=== PATIENT | female | born 1995 | race Caucasian/White ===

== ENCOUNTER → 2022-03-14 13:16 | Outpatient (CLI) | payer BC, SELFPAY ==
--- NOTE | ~2022-03-14 | US_ITS ---
EXAMINATION: US OB /maternal detail DATE: 03/14/2022 13:49 INDICATION: Encounter for screening, unspecified. TECHNIQUE: Real-time ultrasound of the pelvis was performed. COMPARISON: None. FINDINGS: There is a single living fetus in vertex presentation. The placenta is anterior, 1.6 cm from the cer vix. The cervical length is 3.0 cm on transabdominal images, which is normal. heart rate is 122 beats per minute (bpm). The amniotic fluid volume is subjectively normal. The following biometric data were obtained: Biparietal diameter (BPD): 5.4 cm; head circumference (HC): 20.5 cm; abdominal circumference (AC): 17 .4 cm; femur length (FL): 3.9 cm. These measurements are concordant. Estimated weight is 502 g +/- 75 g, which correlates with the 14th percentile when 07/10/22 is u sed as estimated date of delivery. As single measurements, these parameters are each equal to the following estimated gestational ages: BPD: 22 weeks 4 days. HC: 22 weeks 4 days. AC: 22 weeks 2 days. FL: 22 weeks 3 days. estimated gestational age based solely on measurements from this exam is 22 weeks 3 days +/- 1 weeks 4 days. The cerebral ventricles, cerebellum, cisterna magna, lip, and visualized portions of the spine are no rmal. The heart is normal. The diaphragm, stomach, kidneys, and bladder are normal. There are two umb ilical arteries to yield a 3-vessel cord. The cord insertion is normal. IMPRESSION: 1. Single living fetus in vertex presentation. 2. Estimated weight is 502 g +/- 75 g, which correlates with the 14th percentile when 07/10/22 is used as estimated date of delivery. 3. Low-lying placenta. 4. Normal anatomic survey. Reviewed, dictated and finalized at location A. TENANCE [employer]TER IMPRESSION: 1. Single living fetus in vertex presentation. 2. Estimated weight is 502 g +/- 75 g, which correlates with the 14th pe rcentile when 07/10/22 is used as estimated date of delivery. 3. Low-lying placenta. 4. Normal anatomic survey.
== END ==
PROVIDERS: PCP Advanced Practice Midwife; Visit Provider Advanced Practice Midwife
DX: Z36.9 Encounter for antenatal screening, unspecified (principal); Z3A.22 22 weeks gestation of pregnancy
CPT/HCPCS: 76805

== ENCOUNTER 2022-05-02 07:41 | Outpatient (RCR) | payer BC, SELFPAY ==
[2022-05-02] MEDS: RHO(D) IMMUNE GLOBULIN 300 MCG/2 ML SYRINGE IM (12:03)
== END 2022-05-02 08:00 | disposition home or self-care (01) ==
LOC: ANHLAB 07:41
PROVIDERS: Visit Provider Obstetrics & Gynecology Gynecology
DX: Z29.13 Encounter for prophylactic Rho(D) immune globulin (principal); O36.0190 Maternal care for anti-D [Rh] antibodies, unspecified trimester, not applicable or unspecified; Z3A.00 Weeks of gestation of pregnancy not specified
CPT/HCPCS: 36415; 85461; 86850; 86900; 86901; 90384; 96372; J2790

== ENCOUNTER 2022-05-02 09:36 | Outpatient (CLI) | payer BC, SELFPAY ==
[2022-05-02 11:17] LABS: Hematocrit 34.8 % (37.0-47.0)
[2022-05-02 11:27] LABS: Glucose 1 Hour PP 50gm Dose 138 mg/dL
[2022-05-02 11:59] LABS: Vitamin D 25 Hydroxy 45.9 ng/mL
[2022-05-02 12:08] LABS: HIV 1/2 Ab P24 Ag Result Negative (Negative)
== END 2022-05-02 09:37 | disposition home or self-care (01) ==
LOC: ANHLAB 09:40
PROVIDERS: Visit Provider Obstetrics & Gynecology Gynecology
DX: Z36.9 Encounter for antenatal screening, unspecified (principal)
CPT/HCPCS: 36415; 82306; 82947; 85014; 85018; 86703; G0432

== ENCOUNTER → 2022-05-02 11:16 | Outpatient (CLI) | payer BC, SELFPAY ==
--- NOTE | ~2022-05-02 | US_ITS ---
EXAMINATION: US OB follow up DATE: 05/02/2022 11:42 INDICATION: Low-lying placenta during second trimester TECHNIQUE: Real-time ultrasound of the pelvis was performed. The interpreting radiologist was not pre sent for the study. COMPARISON: None. FINDINGS: There is a single living fetus in transverse lie. The placenta is anterior. heart rate is 135 beats per minute (bpm). The amniotic fluid index is 8.2 cm, which is greater than 2 standard deviati ons below the mean (5th%-95%: 9.2-23.1 cm at 29 weeks estimated gestational age). The following biometric data were obtained: BPD: 7.9 cm -> 31 weeks 4 days Head circumference: 28.1 cm -> 30 weeks 6 days Abdominal circumference: 26.9 cm -> 31 weeks 0 days Femur length: 3.2 cm -> 29 weeks 3 days Femur length to biparietal diameter ratio of 70.9 is slightly below the normal range of 71.0-87.0 gre ater. These measurements are otherwise concordant. Head circumference to abdominal circumference ratio: 1.05 (normal range 0.96-1.18). Estimated weight: 1589 g (+/-) 238 g or 3 lbs. 8 oz. (+/-) 8 oz. IMPRESSION: 1. Single living fetus in transverse lie with heart rate of 135 bpm. 2. Oligohydramnios with amniotic fluid index of 8.2 cm. 3. Estimated weight is 77th percentile by Hadlock criteria when 07/15/2022 is used as the estima lissette date of delivery (KAREN). Please correlate with clinical information or earlier ultrasounds for mos t accurate KAREN. 4. Femur length to biparietal diameter ratio minimally beyond the lower limits of normal. Reviewed, dictated and finalized at location L. IMPRESSION: 1. Single living fetus in transverse lie with heart rate of 135 bpm. 2. Oligohydramnios with amniotic fluid index of 8.2 cm. 3. Estimated weight is 77th percentile by Hadlock criteria when 07/15/2022 is used as the estimated date of delivery (KAREN). Please correlate with clinica l information or earlier ultrasounds for most accurate KAREN. 4. Femur length to biparietal diameter ratio minimally beyond the lower limits of normal.
== END ==
PROVIDERS: PCP Physician Assistant; Visit Provider Advanced Practice Midwife
DX: O44.42 Low lying placenta NOS or without hemorrhage, second trimester (principal); O41.02X0 Oligohydramnios, second trimester, not applicable or unspecified
CPT/HCPCS: 76816

== ENCOUNTER 2022-05-11 07:40 | Outpatient (CLI) | payer BC, SELFPAY ==
[2022-05-11 08:14] LABS: Glucose Fasting Gestational 84 mg/dL (>/=95)
[2022-05-11 10:01] LABS: Glucose 1 Hour Gest 167 mg/dL (>/=180)
[2022-05-11 10:38] LABS: Glucose 2 Hour Gest 135 mg/dL (>/= 155)
[2022-05-11 11:57] LABS: Glucose 3 Hour Gest 42 mg/dL (>/=140)
== END 2022-05-11 07:41 | disposition home or self-care (01) ==
PROVIDERS: PCP Physician Assistant; Visit Provider Obstetrics & Gynecology Gynecology
DX: O99.810 Abnormal glucose complicating pregnancy (principal); Z3A.00 Weeks of gestation of pregnancy not specified
CPT/HCPCS: 36415; 82951; 82952

== ENCOUNTER 2022-06-26 16:44 | Outpatient (CLI) | payer BC, SELFPAY ==
[2022-06-26] VITALS (11 sets, daily range): BP systolic 119–136; BP diastolic 70–81; PULSE 75–82
[2022-06-26 17:43] LABS: Appearance Urine Clear (Clear); Basophils Absolute Auto 0.1 K/mm3 (0.0-0.1); Basophils Percent Auto 0.4 % (0.2-1.2); Bilirubin Urine Negative (Negative); Blood Urine Negative (Negative); Color Urine Yellow (Yellow); Eosinophils Absolute Auto 0.1 K/mm3 (0-0.3); Eosinophils Percent Auto 0.4 % (0-4.4); Glucose Urine UA Negative (Negative); Hematocrit 36.5 % (37.0-47.0); Hemoglobin 12.7 g/dL (12.0-15.0); Immature Granulocyte Absolute 0.07 K/mm3 (0.00-0.031); Immature Granulocyte Percent A 0.6 % (0-0.5); Ketones Urine Negative (Negative); Leukocyte Esterase Ur Negative LEU/UL (NEGATIVE); Lymphocytes Percent Auto 19.9 % (18.3-44.2); Mean Corpuscular HGB Conc 34.8 g/dl (32-36); Mean Corpuscular Hemoglobin 34.5 pg (26-34); Mean Corpuscular Volume 99.2 fl (80-100); Mean Platelet Volume 10.2 fl (7.4-10.4); Monocytes Absolute Auto 0.7 K/mm3 (0.1-0.6); Monocytes Percent Auto 5.7 % (2.6-8.5); Neutrophils Absolute Auto 8.8 K/mm3 (1.3-6.7); Nitrate Urine Negative (Negative); Platelet Count Result 203 k/mm3 (150-375); Protein Urine Negative (Negative); Red Blood Count 3.68 M/mm3 (4.2-5.4); Red Cell Distribution Width 13.5 % (11.5-14.5); Specific Grav Ur 1.009 (1.001-1.035); Urobilinogen Urine 0.2 mg/dL (<2.0); White Blood Count 12.1 K/mm3 (4.5-10.0)
[2022-06-26 17:51] LABS: Add Urine Microscopic? NO
[2022-06-26 17:56] LABS: Alanine Aminotransferase 27 U/L (6-35); Albumin Level 3.8 g/dL (3.5-5.1); Alkaline Phosphatase 191 U/L (38-126); Anion Gap 10 mmol/L (8-16); Aspartate Amino Transferase 35 U/L (14-36); Bilirubin,Total 0.4 mg/dL (0.2-1.3); Blood Urea Nitrogen 11 mg/dL (7-17); Calcium 8.8 mg/dL (8.4-10.2); Carbon Dioxide 20 mmol/L (22-30); Chloride 105 mmol/L (98-107); Estimated Glomerular Filt Rate > 60; Glucose 86 mg/dL (65-110); Potassium 4.1 mmol/L (3.4-5.0); Sodium 135 mmol/L (137-145); Uric Acid 5.4 mg/dL (2.5-7.5)
[2022-06-26 17:57] LABS: Creatinine Urine 24.7 mg/dL; Total Protein Urine Random 9 mg/dL; Ur Ttl Prot Creatinine Ratio 0.36 mg/mg (0-0.20)
--- NOTE | 2022-06-26 19:10 | PC.NURSE ---
Severiano Sandoval CNM called unit for update. CNM notified of lab results, Vital signs, and tracing. CNM notified that patient has no signs of Pre-E. Orders received to return home with 24 hour urine to start whenever is convenient for patient and to have CMP at time of returning urine.
--- NOTE | 2022-06-26 19:20 | PC.NURSE ---
Discharge instructions given to patient. Educated on 24 hour urine process with instruction hand out given to patient. Patient given signs and symptoms of Pre - E. Informed of repeat lab draws upon urine return. Patient verbalizes understanding and is discharged home with paper instructions without complications.
== END 2022-06-26 19:20 ==
LOC: ANHOBOP 16:47 → ANHOBPP 16:48
PROVIDERS: Advanced Practice Midwife; PCP Physician Assistant; Visit Provider Obstetrics & Gynecology Gynecology
DX: O13.9 Gestational [pregnancy-induced] hypertension without significant proteinuria, unspecified trimester (principal); Z3A.00 Weeks of gestation of pregnancy not specified
CPT/HCPCS: 36415; 59025; 80053; 81003; 82570; 84156; 84550; 85025; 87086; 87088; 99199

== ENCOUNTER 2022-06-27 20:50 | Outpatient (CLI) | payer BC, SELFPAY ==
[2022-06-27 21:30] VITALS: BP 128/88
[2022-06-27 21:41] VITALS: BMI 26.8
[2022-06-27 22:00] LABS: Alanine Aminotransferase 25 U/L (6-35); Albumin Level 3.6 g/dL (3.5-5.1); Alkaline Phosphatase 172 U/L (38-126); Anion Gap 7 mmol/L (8-16); Aspartate Amino Transferase 31 U/L (14-36); Bilirubin,Total 0.3 mg/dL (0.2-1.3); Blood Urea Nitrogen 17 mg/dL (7-17); Calcium 8.4 mg/dL (8.4-10.2); Carbon Dioxide 21 mmol/L (22-30); Chloride 106 mmol/L (98-107); Estimated CRCL calculation 80 ml/min; Estimated Glomerular Filt Rate > 60; Glucose 87 mg/dL (65-110); Potassium 3.6 mmol/L (3.4-5.0); Sodium 134 mmol/L (137-145)
[2022-06-28 03:06] LABS: Collection Time Urine 24 HOURS
[2022-06-28 03:14] LABS: Creatinine Urine 71.9 mg/dL; Patient Weight 156 Lbs
[2022-06-28 03:16] LABS: Total Protein Urine Random < 5 mg/dL
[2022-06-28 03:17] LABS: Creatinine Clearance Urine 123.1 ml/min (75-125); Total Protein Urine 24 Hr < 100 mg/24hr (28-141); Total Volume 24 Hour Urine 2000 ml
== END 2022-06-27 21:40 | disposition home or self-care (01) ==
LOC: ANHOBOP 20:57 → ANHLDR 21:10
PROVIDERS: Advanced Practice Midwife; PCP Physician Assistant; Visit Provider Obstetrics & Gynecology Gynecology
DX: O13.9 Gestational [pregnancy-induced] hypertension without significant proteinuria, unspecified trimester (principal); Z3A.00 Weeks of gestation of pregnancy not specified
CPT/HCPCS: 36415; 80053; 81050; 82575; 84156; 99199

== ENCOUNTER 2022-07-02 19:11 | Inpatient (IN) | payer BC, SELFPAY ==
[2022-07-02] VITALS (11 sets, daily range): BP systolic 119–139; BP diastolic 73–90; PULSE 73–86; TEMP 36.5; BMI 32.9
--- NOTE | 2022-07-02 19:37 | P.PNAN_ITS ---
Anes - Eval Pre Procedure Procedure: labor epidural Date/Time: 07/02/22 19:37 Surgeon: jared Preop Diagnosis: pain during labor Pre Op Diagnosis: Induction of Labor Patient Data Age: 26 Gender: F Height: Weight: Allergies Allergy/AdvReac Type Severity Reaction Status Date / Time latex Allergy Rash Verified 07/01/22 12:48 Home Medications Medication Instructions Recorded Confirmed Type diphenhydramine HCl 50 mg capsule 50 mg PO HS 07/01/22 07/01/22 History (Sleep Aid (diphenhydramine)) sertraline 25 mg tablet (Zoloft) 25 mg PO DAILY 07/01/22 07/01/22 History Patient hx anesthesia problems: none Family hx anesthesia problems: none Results Review: All pre-operative results and documents have been reviewed as part of the pre- operative evaluation. PMFSH Past Medical History Medical History (Updated 07/02/22 @ 19:38 by Eri Mukherjee CRNA) IUP (intrauterine ), incidental Family History Family History (Updated 07/01/22 @ 12:42 by Chrissy Oliver RN) Grandparent Diabetes mellitus Social History Social History Spiritual care concerns: No Exam Day of Procedure 07/02/22 19:37
--- NOTE | 2022-07-02 19:42 | LDADM ---
This patient, Allyssa Isbell, was admitted to Labor/Delivery/Recovery 109 on 07/02/22 at 19:11. Plans for labor, pain management and were discussed with patient. Patient/family oriented to hospital policies and general routines including ID bracelet, bed and alarms, visiting hours, pain management, procedures, bathroom and other care routines, personal items, smoking policy, room service/diet and guest tray routines, security routines, and visiting hours. Patient/Family are encouraged to report perceived risks to care and to ask questions if they do not understand what they are told or what they should do. See OBIX for further documentation.
[2022-07-02] MEDS: miSOPROStol 25 MCG TABLET BY MOUTH (20:00)
[2022-07-02 20:09] LABS: Basophils Percent Auto 0.4 % (0.2-1.2); Eosinophils Absolute Auto 0.1 K/mm3 (0-0.3); Eosinophils Percent Auto 0.6 % (0-4.4); Hematocrit 37.3 % (37.0-47.0); Hemoglobin 13.1 g/dL (12.0-15.0); Immature Granulocyte Absolute 0.05 K/mm3 (0.00-0.031); Immature Granulocyte Percent A 0.5 % (0-0.5); Lymphocytes Absolute Auto 2.04 K/mm3 (0.9-3.2); Lymphocytes Percent Auto 19.2 % (18.3-44.2); Mean Corpuscular HGB Conc 35.1 g/dl (32-36); Mean Corpuscular Hemoglobin 33.9 pg (26-34); Mean Corpuscular Volume 96.4 fl (80-100); Mean Platelet Volume 10.9 fl (7.4-10.4); Monocytes Absolute Auto 0.7 K/mm3 (0.1-0.6); Monocytes Percent Auto 6.6 % (2.6-8.5); Neutrophils Absolute Auto 7.7 K/mm3 (1.3-6.7); Neutrophils Percent Auto 72.7 % (45.5-73.1); Platelet Count Result 201 k/mm3 (150-375); Red Blood Count 3.87 M/mm3 (4.2-5.4); Red Cell Distribution Width 13.3 % (11.5-14.5); White Blood Count 10.6 K/mm3 (4.5-10.0)
[2022-07-02 20:25] LABS: Alanine Aminotransferase 28 U/L (6-35); Albumin Level 3.7 g/dL (3.5-5.1); Alkaline Phosphatase 228 U/L (38-126); Anion Gap 8 mmol/L (8-16); Aspartate Amino Transferase 46 U/L (14-36); Bilirubin,Total 0.3 mg/dL (0.2-1.3); Blood Urea Nitrogen 16 mg/dL (7-17); Calcium 8.5 mg/dL (8.4-10.2); Carbon Dioxide 19 mmol/L (22-30); Chloride 108 mmol/L (98-107); Estimated CRCL calculation 112 ml/min; Estimated Glomerular Filt Rate > 60; Glucose 77 mg/dL (65-110); Potassium 4.1 mmol/L (3.4-5.0); Sodium 135 mmol/L (137-145)
[2022-07-02] MEDS: AMPICILLIN 2 GM/NS 100 ML 2 GM/100 ML BAG IVPB (21:35)
[2022-07-02] MEDS: LACTATED RINGERS 1,000 ML 125 ML IV CONT (21:35)
[2022-07-03] VITALS (274 sets, daily range): BP systolic 97–167; BP diastolic 54–124; PULSE 59–178; RESP 16; TEMP 36.5–37.6; O2SAT 85–100
[2022-07-03] MEDS: fentaNYL CITRATE INJ (*CRX) 100 MCG/2 ML VIAL 50 MCG IV PUSH (00:06)
[2022-07-03] MEDS: LACTATED RINGERS 1,000 ML 125 ML IV CONT ×3 (01:02→10:42)
[2022-07-03] MEDS: AMPICILLIN 1 GM/NS 50 ML 1 GM/50 ML BAG IVPB ×3 (01:45→10:42)
--- NOTE | 2022-07-03 07:22 | WPDOBADMIT ---
Obstetrics - Admit Note Admission Note: record reviewed. No pertinent additions to the history and/or any subsequent changes in the physical findings that are not consistent with the expected course of the were found. Additions to the history and/or subsequent changes in the physical findings follow. gHTN.
--- NOTE | 2022-07-03 07:22 | PM.OBPNLAB ---
Pain Control Date/time seen: 07/03/22 0500 (late entry) CNM called at 0505 for update. SROM 07/02/22 after one cytotec. Pt last 6cm by RN exam. Making change with no pitocin. FHT tracing reassuring. pt comfortable with epidural. Discussed that CNM will see pt this am. Anticipate vaginal .
--- NOTE | 2022-07-03 08:11 | PM.OBPNLAB ---
Pain Control Date/time seen: 07/03/22 08:08 Pain control: tolerating well and epidural Comments: Denies pain. Feeling some occasional abdominal tightening/pressure. Spouse present and supportive Pelvic Exam Dilation (cm): 5 Effacement (%): 80 station: -1 Amniotic membrane status: Ruptured Contractions Monitor mode: External Contraction pattern: Irregular Contraction intensity: Moderate Status status: Category ll Comments: Reassured by moderate variability and accelerations. Assessment and Plan Plan: begin patient augmentation Comments: Discussed plan of care and recommend IUPC placement. Pt agreeable. If MVUs inadequate, plan to begin pitocin augmentation. Anticipate vaginal . Dr. Hawkins updated. BPs WNL. Recieving Ampicillin d/t GBS+ status.
[2022-07-03] MEDS: OXYTOCIN 30 UNITS/NS 500 ML 30 UNITS/500 ML BAG IV CONT (09:30)
[2022-07-03 10:56] LABS: Rapid Plasma Reagin Non-Reactive (NonReactive)
--- NOTE | 2022-07-03 16:05 | P.PCNOB_ITS ---
OB - Delivery Note Procedure Delivery date: 07/03/22 Procedure: Events: Gestational Hypertension and Positive Group B Strep (GBS) Induction method: AROM, Per Misoprostol Protocol and Per Pitocin Protocol Route of delivery: Episiotomy description: None Laceration Description: Periurethral, Perineal - 1st Degree and Vaginal Delivery repair: vicryl Specimen: Yes Quantitative Blood Loss (ml): 150 Anesthesia type: Epidural Disposition: Floor Narrative: Patient arrived for induction of labor secondary to gestational hypertension. She was given 1 Cytotec and spontaneously ruptured and began having more regular uterine contractions. She progressed to 5 cm and then was augmented with Pitocin. She made progress to complete dilation and pushed with contractions. There was easy delivery of the head followed by fair restitution and delivery of the anterior followed by posterior shoulder. The remainder of the infant was quickly delivered and baby was placed on maternal abdomen and dried and stimulated by the nursing staff. After 1 minute of life the cord was doubly clamped and cut. Cord blood, cord gases, cord segment were obtained. The placenta delivered spontaneously in the [place] presentation. The lacerations repaired in the usual fashion and there was excellent hemostasis. All delivery counts correct. Mother and baby skin to skin in the delivery room. [place] Baby Date of : 07/03/22 Time of : 15:36 Weeks of gestation at delivery: 38 gender: Male Weight (pounds): 6 Weight (ounces): 13 presentation: vertex position: Right Occiput Anterior (compound presentation with right hand) Placenta delivery description: Spontaneous Cord Vessel Description: 3 Vessels, True Knot, Clamped/Cut and Delayed Cord Clamping score one minute: 9 score five minutes: 9
--- NOTE | 2022-07-03 16:09 | PM.DS ---
DS: Admitting Diagnosis Discharge Date 07/05/22 Admitting Diagnosis 26 y.o. at 38 weeks gHTN Anxiety Rh negative status Rubella Non immune DS: Discharge Diagnosis Discharge Diagnosis (1) (normal spontaneous vaginal delivery): Code(s): O80 - Encounter for full-term uncomplicated delivery Status: Acute (2) Anxiety: Code(s): F41.9 - Anxiety disorder, unspecified Status: Acute (3) Rh negative status during : Code(s): O26.899 - Other specified related conditions, unspecified trimester; Z67.91 - Unspecified blood type, Rh negative Status: Acute Assessment and Plan: s/p Rhogam (4) Gestational hypertension: Code(s): O13.9 - Gestational [-induced] hypertension without significant proteinuria, unspecified trimester Status: Acute DS: Summary Hospital Course Reason for hospitalization: childbirth Hospital Course: Uncomplicated Status at Discharge Functional status at discharge: independent ambulation Overall status at discharge: patient is progressing back to baseline Time Spent with Patient Time attestation: Total time spent providing and/or coordinating discharge services: Exam Narrative: Alert and oriented. Mood is pleasant and cooperative. Urinating without difficulty. Denies passing any large clots. Perineum with minimal edema. Fundus firm and below umbilicus. Const: General: cooperative, healthy appearing, no acute distress and alert Orientation/consciousness: patient oriented x3 Limitations: no limitations Resp: Effort & Inspection: normal respiratory effort Auscultation: clear to auscultation bilaterally Cardio: Rate: regular rate GI: Inspection: normal to inspection Neuro: General: patient oriented x3 Extrem: General: normal to inspection Psych: Appearance: grossly normal Mental Status: mental status grossly normal Affect: normal affect Thought process: Normal thought process present DS: Data Data Completed and Pending Labs on day of discharge: Labs from last 24 hours 07/02/22 19:55 WBC 10.6 H RBC 3.87 L Hgb 13.1 Hct 37.3 MCV 96.4 MCH 33.9 MCHC 35.1 RDW 13.3 Plt Count 201 MPV 10.9 H Immature Gran % (Auto) 0.5 Neut % (Auto) 72.7 Lymph % (Auto) 19.2 [place] % (Auto) 6.6 Eos % (Auto) 0.6 Baso % (Auto) 0.4 Lymph # (Auto) 2.04 [place] # (Auto) 0.7 H Eos # (Auto) 0.1 Baso # (Auto) 0.0 Abs Immat Gran (auto) 0.05 H Absolute Neuts (auto) 7.7 H Absolute Nucleated RBC 0.0 Nucleated RBC % 0.0 Sodium 135 L Potassium 4.1 Chloride 108 H Carbon Dioxide 19 L Anion Gap 8 BUN 16 Creatinine 0.70 Estim Creat Clear Calc 112 Estimated GFR > 60 Glucose 77 Calcium 8.5 Total Bilirubin 0.3 AST 46 H ALT 28 Alkaline Phosphatase 228 H Total Protein 7.0 Albumin 3.7 RPR Non-reactive Blood Type O Negative Antibody Screen Positive Antibody Identification Passive Due to RH Imm Glob Antigen Identification Cancelled NIKHIL, IgG Interpret Not Performed NIKHIL, Poly Interpret Negative NIKHIL, Complement Interp Not Performed Discharge Plan Discharge Attending physician on discharge: Yareli Hawkins Discharging Clinician: Melva Sandoval Patient Disposition: Home, Self-Care Activity: may shower Diet: as tolerated Discharge Instructions: Continue taking your vitamin and any other supplements as previously directed (Examples: Iron, Vitamin D). You may take Tylenol 1000mg over the counter every 6 hours as needed for pain. Do not exceed 4000mg of Tylenol daily. You may continue using tucks pads and dermoplast spray if needed for a few more days. Patient Instructions: Antibiotic Form Stand Alone Forms: General Discharge Information Follow-up/Referrals: Melva Sandoval, CNM [Certified Nurse Interactive Designer] - (6 weeks ) Discharge Medications: New norethindrone (contraceptive) [Ortho Micronor] 0.35 mg tablet 0.35 mg PO D
[2022-07-03] MEDS: OXYTOCIN 30 UNITS/NS 500 ML 30 UNITS/500 ML BAG 125 UNITS IV CONT (16:13)
--- NOTE | 2022-07-03 18:29 | OBPPTRN ---
Patient transferred to post room #288 via wheelchair. Support person present. Oriented to unit, room, information board, rooming in, admission packet and security measures. Patient verbalizes understanding.
[2022-07-03] MEDS: IBUPROFEN 600 MG TABLET PO (19:32)
[2022-07-04 01:15] VITALS: BP 127/84; PULSE 79; RESP 20; TEMP 36.5; O2SAT 100
[2022-07-04 05:11] LABS: Hematocrit 32.1 % (37.0-47.0); Hemoglobin 11.1 g/dL (12.0-15.0)
--- NOTE | 2022-07-04 07:56 | PM.OBPNVD ---
OB - PN: Subj Subjective Date/time seen: 07/04/22 07:56 Patient comments: no complaints and pain well controlled baby status: doing well OB - PN: Obj Data Labs 07/04/22 04:44 07/02/22 19:55 Labs: Laboratory Results - last 24 hr 07/02/22 07/04/22 19:55 04:44 Hgb 11.1 L Hct 32.1 L RPR Non-reactive Blood Type O Negative Antibody Screen TNP OB - PN A/P Plan day: 1 Plan: routine care and other (plans micronor) Time Spent With Patient Time: Total time spent is greater than 50% in coordination of care (as documented) at patient's floor/unit and/or counseling patient: Exam : Bimanual exam- vagina & uterus: other (Uterus firm, nt @U)
[2022-07-04] MEDS: IBUPROFEN 600 MG TABLET PO ×2 (08:20→16:47)
[2022-07-04] MEDS: DOCUSATE SODIUM 100 MG CAPSULE PO ×2 (08:21→16:47)
[2022-07-04] MEDS: MULTIVIT/MIN/PREN/FOL AC/IRON TABLET 1 TAB PO (08:21)
[2022-07-04 08:30] VITALS: BP 130/88; PULSE 80; RESP 16; TEMP 37; O2SAT 100
--- NOTE | 2022-07-04 08:55 | PC.NURSE ---
Mother asked for help, would like to see nurse, she is having trouble getting baby to latch. States she asked for help through the night but did not feel like she got a lot of help. Called but she is busy at the time assisting other moms, discussed positioning and latch with mother. Assisted mother with getting baby latched on in the football position, baby was able to latch after a few tries and was nursing when I left the room. Told mother to call if she needed anymore help
--- NOTE | 2022-07-04 11:03 | WPDANESPN ---
Anes - Prog Note Post-Op Date/Time: 07/04/22 11:03 Cardiovascular status: normal Respiratory status: normal Airway patency: baseline Mental status: baseline Post-Op hydration status: normal Vital Signs: Last Vital Signs Temp 37.0 C 07/04/22 08:30 Pulse 80 07/04/22 08:30 Resp 16 07/04/22 08:30 BP 130/88 07/04/22 08:30 Pulse Ox 100 07/04/22 08:30 O2 Del Method Room Air 07/04/22 08:20 Pain Score (VAS): 1 I/O: Intake & Output 07/03/22 07/04/22 07/04/22 23:59 07:59 15:59 Output Total 100 Balance -100 Laboratory Tests 07/04/22 04:44 07/02/22 19:55 07/04/22 04:44 Hgb 11.1 L Hct 32.1 L Blood Type O Negative Antibody Screen TNP Screen Negative Baby's Blood Type O pos Baby's NIKHIL Negative Doses of RhIg Required 1 Post-procedural complaints: none Patient Feedback: Patient satisfied with anesthetic care.
[2022-07-04 12:10] VITALS: PULSE 80; RESP 16; O2SAT 100
[2022-07-04 12:49] VITALS: BP 117/66; PULSE 78; RESP 16; TEMP 36.6; O2SAT 100
[2022-07-04] MEDS: RHO(D) IMMUNE GLOBULIN 300 MCG/2 ML SYRINGE IM (12:51)
--- NOTE | 2022-07-04 16:38 | PC.NURSE ---
[id number] Introductions were made, then consulted with patient to assess needs related to . Mother led the conversation with her?plans to feed?her infant and the?experience so far. Resources provided for inpatient and outpatient services with the feeding sheet, mom/baby guide and name written on the white board. Mother voiced understanding of information, Encouraged understanding of the benefits of skin to skin (demonstrating unwrapping and placing upright on her chest), stimulating with massage touch, changing positions to encourage wakefulness, how to watch for early feeding cues,hand expression (mother has many drops of milk) responsive feeding, feeding on demand (aiming for 8-12 times in 24 hours, about every 2-3 hours), milk production, building/maintaining a milk supply, duration of feeding, signs of adequate intake/output and how to record on the feeding sheet. [id number] Consulted with patient to assess needs related to . Mother works well with her with encouragement. Reviewed working with , supporting breast and how to protect the nipples with an optimal deep latch, good positioning, and good hand washing. Mother demonstrates good efforts stimulating infant to wake for . Reviewed positioning and alignment, supporting breast, off-centered (asymmetrical latch) and leading with the chin with big, open, wide gape. is awake and alert not demonstrating efforts to latch to the breast. Mother was able to hand express 3mls of colostrum into a spoon. Spoon was placed at the infants lower lip with the colostrum at the edge of the spoon and was able to lap the milk off of the spoon. Infant became gaggy and spitty after eating. Father of baby states they (nurse downstairs after delivery) suctioned the baby out. Discussed with mother the behaviors of the 1st 24 hours, 2nd 24 hours, and post circumcision typical behaviors of sleepiness and not being eager to breastfeed. Mother voiced understanding of skin to skin, stimulating with massage touch, responsive feedings, hand expressed colostrum, talking to to encourage if it has been 2 -2.5 hours since the start of the last , to call if infant does not latch, or if there is discomfort with . Resources used to facilitate learning were used from the visual handout, tool, mom and baby guide. Mother voiced understanding of the education shared, to call for assistance if the infant does not latch or if there is discomfort with . Reported to the primary RN.
[2022-07-04 20:28] VITALS: BP 130/84; PULSE 84; RESP 18; TEMP 37.3; O2SAT 98
[2022-07-05] MEDS: SERTRALINE HCL 25 MG TABLET PO
[2022-07-05] MEDS: IBUPROFEN 600 MG TABLET PO ×2 (00:10→09:15)
--- NOTE | 2022-07-05 07:51 | PM.OBPNVD ---
OB - PN: Subj Subjective Date/time seen: 07/05/22 07:45 Interval history: PPD2 from . reports decreasing discomfort with urination. Baby well. Reports good latch and no discomfort to breasts. Patient comments: no complaints and pain well controlled baby status: doing well and nursing well [place] feeding status: exclusively breast feeding OB - PN: Obj Data Labs 07/04/22 04:44 07/02/22 19:55 Labs: Laboratory Results - last 24 hr 07/04/22 04:44 Blood Type O Negative Antibody Screen TNP Screen Negative Baby's Blood Type O pos Baby's NIKHIL Negative Doses of RhIg Required 1 OB - PN A/P Plan day: 2 Plan: discharge home and follow up 6 weeks Time Spent With Patient Time: Total time spent is greater than 50% in coordination of care (as documented) at patient's floor/unit and/or counseling patient: Review of Systems Review of Systems: All systems reviewed & are unremarkable except as noted in HPI and below Exam Narrative: Alert and oriented. Mood is pleasant and cooperative. Urinating without difficulty. Denies passing any large clots. Perineum with minimal edema. Fundus firm and below umbilicus. Const: General: cooperative, healthy appearing, no acute distress and alert Orientation/consciousness: patient oriented x3 Limitations: no limitations Resp: Effort & Inspection: normal respiratory effort Auscultation: clear to auscultation bilaterally Cardio: Rate: regular rate GI: Inspection: normal to inspection Neuro: General: patient oriented x3 Extrem: General: normal to inspection Psych: Appearance: grossly normal Mental Status: mental status grossly normal Affect: normal affect Thought process: Normal thought process present
[2022-07-05 08:10] VITALS: BP 141/89; PULSE 78; RESP 16; TEMP 36.4; O2SAT 100
[2022-07-05] MEDS: DOCUSATE SODIUM 100 MG CAPSULE PO (09:15)
[2022-07-05] MEDS: MULTIVIT/MIN/PREN/FOL AC/IRON TABLET 1 TAB PO (09:15)
[2022-07-05] MEDS: BENZOCAINE 20% AER SPR (*SP) 56 GM CAN 1 SPRAY TOPICAL (09:15)
[2022-07-05] MEDS: WITCH HAZEL 40 PADS 1 PAD TOPICAL (09:15)
[2022-07-05 11:29] VITALS: PULSE 78; RESP 16; O2SAT 100
--- NOTE | 2022-07-05 11:41 | PC.NURSE ---
Patient states that she has the discharge video Mother & Baby Care, The First Two Weeks pulled up on her phone and will watch soon. Patient was given the opportunity and encouraged to ask questions. Patient verbalized understanding of information shared and has been given the mother/baby guide for home reference.
[2022-07-05] MEDS: MEASLES,MUMPS,RUBELLA VACCINE 0.5 ML VIAL SUB-Q (12:45)
[2022-07-06 10:46] VITALS: BP 143/90; RESP 20; TEMP 37.4; O2SAT 100
== END 2022-07-05 13:00 | disposition home or self-care (01) | DRG 807 ==
LOC: ANHLDR 07-03 16:14 → ANHOB2 07-03 18:50
PROVIDERS: Advanced Practice Midwife; Admitting Provider Obstetrics & Gynecology Gynecology; PCP Physician Assistant; Visit Provider Obstetrics & Gynecology Gynecology
DX: O13.4 Gestational [pregnancy-induced] hypertension without significant proteinuria, complicating childbirth (principal); Z37.0 Single live birth; Z3A.38 38 weeks gestation of pregnancy; O99.824 Streptococcus B carrier state complicating childbirth; O42.92 Full-term premature rupture of membranes, unspecified as to length of time between rupture and onset of labor; O99.344 Other mental disorders complicating childbirth; F41.9 Anxiety disorder, unspecified; O70.0 First degree perineal laceration during delivery
CPT/HCPCS: 36415; 80053; 84112; 85014; 85018; 85025; 85461; 86592; 86850; 86880; 86900; 86901; 86902; 88307; 90384; 90710; A9270; J0290; J2590; J2790; J2795; J3010; J7120